=== PATIENT | female | born 1960 | race Two or more races ===

== ENCOUNTER 2020-05-30 14:16 | Emergency (ER) | payer OTHER, SELFPAY ==
[2020-05-30 14:28] VITALS: BP 178/80; PULSE 107; RESP 18; TEMP 36.8; O2SAT 100; BMI 21.5
[2020-05-30 16:16] LABS: MANUAL DIFF FLAG NO
[2020-05-30 16:18] LABS: Basophils Percent Auto 0.3 % (0-2); Eosinophils Percent Auto 0.3 % (0-4); Hematocrit 49.8 % (37-47); Hemoglobin 16.5 g/dl (12.0-16.0); Imm Gran Abs Auto 0.02 X10*3/uL (0.00-0.03); Imm Gran Pct Auto 0.2 % (0.0-0.4); Lymphocytes Absolute Auto 2.1 X10*3/uL (1.2-4.9); Lymphocytes Percent Auto 21.8 % (20-40); Mean Corpuscular HGB Conc 33.1 g/dl (31.0-35.0); Mean Corpuscular Hemoglobin 31.1 pg (27.0-33.0); Mean Corpuscular Volume 93.8 fL (80-98); Mean Platelet Volume 10.1 fL (9.4-12.3); Monocytes Absolute Auto 0.9 X10*3/uL (0.1-1.2); Monocytes Percent Auto 9.1 % (2-11); Neutrophils Absolute Auto 6.5 X10*3/uL (2.0-8.3); Neutrophils Percent Auto 68.3 % (45-73); Platelet Count 326 X10*3/uL (160-400); Red Blood Count 5.31 X10*6/uL (4.20-5.50); Red Cell Distribution Width 11.9 % (11.0-16.0); White Blood Count 9.5 X10*3/uL (4.8-10.8)
--- NOTE | 2020-05-30 16:28 | ED_ITS ---
HPI - Abdominal Pain General Chief Complaint: Abdominal Pain Stated Complaint: abd pain Time Seen by Provider: 05/30/20 16:25 Source: patient Mode of arrival: ambulatory History of Present Illness HPI narrative: 60-year-old female with a past medical history of hypertension, constipation presenting to ED complaining of acute on chronic abdominal pain x months. Admits decreased p.o. intake due to pain. Admits was recently at [facility], had workup/CT scan that were unremarkable, has been taking GoLYTELY and Tylenol without relief. States symptoms are the same/unchanged from chronic. Denies fever, chills, nausea/vomiting or diarrhea, dysuria/hematuria, recent travel, suspicious food intake MD elicited complaint: abdominal pain Related Data Home Medications Medication Instructions Recorded Confirmed acetaminophen 325 mg tablet 0 mg PO 05/30/20 amlodipine 5 mg tablet 5 mg PO DAILY 05/30/20 cholecalciferol (vitamin D3) 25 25 mcg PO DAILY 05/30/20 mcg (1,000 unit) capsule ergocalciferol (vitamin D2) 1,250 1,250 mcg PO QWEEK 05/30/20 mcg (50,000 unit) capsule polyethylene glycol 3350 17 g PO 05/30/20 gram/dose oral powder Previous Rx's Medication Instructions Recorded alum-mag hydroxide-simeth [Maalox 5 ml PO 5XD PRN #3000 ml 05/30/20 Advanced] lidocaine HCl [Lidocaine Viscous] 1 appl MUCOUS MEMBRANE BID PRN 05/30/20 #100 ml omeprazole 20 mg PO DAILY #14 cap 05/30/20 Allergies Allergy/AdvReac Type Severity Reaction Status Date / Time No Known Allergies Allergy Verified 05/30/20 13:17 Review of Systems Review of Systems Constitutional: No Weight loss, No Fever, No Chills Cardiovascular: No Chest Pain, No SOB Respiratory: No Cough, No Sputum, No Wheezing, No Dyspnea Gastrointestinal: No Nausea, No Vomiting, No Diarrhea, No Constipation, + Abdominal pain, No Hematochezia, No Melena Genitourinary: No irregular bleeding, No Dysuria, No Urinary Frequency, No Hematuria Musculoskeletal: No joint pain, No Myalgias, No Joint Swelling Skin: No Skin Lesions, No rash Yes all other systems are reviewed and are negative Physical Exam Vital Signs: Vital Signs: Last Vital Signs Temp 98.3 F 05/30/20 19:19 Pulse 78 05/30/20 19:28 Resp 16 05/30/20 19:19 BP 149/83 H 05/30/20 19:28 Pulse Ox 99 05/30/20 19:19 Body Mass Index 21.5 Const: General: cooperative and healthy appearing Orientation/consciousnes s: patient oriented x3 Limitations: no limitations HENMT: Head: Yes normal to inspection Ears: hearing grossly normal bilaterally General nose exam: Normal external nose present Face and sinus: Yes normal facial exam Eyes: General: appearance normal, both eyes and all related structures EOM: EOMs intact bilaterally Neck: Neck: Yes normal visual inspection Resp: Effort & Inspection: normal respiratory effort Cardio: Rate: regular rate Heart sounds: S1 normal heart sound present and S2 normal heart sound present Peripheral pulses: Peripheral pulses 2+ t hroughout GI: Inspection: Yes normal to inspection Palpation (GI): Soft to palpation, not firm, nontender, no guarding, not rigid and Pulsatile mass present (Pulsatile mass appreciated in her abdomen) : General: Yes no CVA tenderness Back/Spine/Pelvis: Back: no CVA tenderness Skin: Rashes: no rashes Wounds: no wounds Neuro: General: patient oriented x3 Gait exam (Neuro): Normal gait present Extrem: General: Yes normal to inspection Course Course Course Narrative: * No leukocytosis, labs otherwise unremarkable * 2037--UA negative. I spoke to patient's daughter on the phone, she admits patient has been dealing with this chronic abdominal pain for a long time. Is scheduled for endoscopy/colonoscopy in a few weeks. Daughter also confirmed patient has been worked up for pulsatile mass. * Follow-up with PCP/GI discussed with patient and with daughter, they verbalized understanding in feel safe for patient to be discharged home MDM - Abdominal Pain MDM Narrative Medical decision making narrative: 60-year-old female with a past medical history of hypertension, constipation presenting to ED complaining of acute on chronic abdominal pain x months. On exam initially tachycardic, NAD/nontoxic appearing, abdomen soft, nontender, pulsatile mass appreciated. On bedside ultrasound aorta measured and 3.4 cm. Reviwed records from [facility] from recent ED visit on 05/03/2020, per records patient has had workup done from pulsatile lesion her abdomen. Abdominal pain is noted to be chronic which she has been worked up for as well. Labs reviewed from this ED visit and were WNL, as well as CT which only showed constipation, no aneurysm or venous thrombosis, no other acute findings. Also per notes patient has scheduled endoscopy and colonoscopy in 2 weeks Likely acute on chronic pain. Low concern for appendicitis/divertic ulitis/dissection/aneurysm/cholecystitis or lithiasis Plan: Labs, UA, symptomatic therapy/reassess Lab Data Result diagrams: 05/30/20 15:56 05/30/20 15:56 Labs: Lab Results 05/30/20 05/30/20 05/30/20 Range/Units 15:56 15:56 15:56 WBC 9.5 (4.8-10.8) X10*3/uL RBC 5.31 (4.20-5.50) X10*6/uL Hgb 16.5 H (12.0-16.0) g/dl Hct 49.8 H (37-47) % MCV 93.8 (80-98) fL MCH 31.1 (27.0-33.0) pg MCHC 33.1 (31.0-35.0) g/dl RDW 11.9 (11.0-16.0) % Plt Count 326 (160-400) X10*3/uL MPV 10.1 (9.4-12.3) fL Immature Gran % (Auto) 0.2 (0.0-0.4) % Neut % (Auto) 68.3 (45-73) % Lymph % (Auto) 21.8 (20-40) % Creek % (Auto) 9.1 (2-11) % Eos % (Auto) 0.3 (0-4) % Baso % (Auto) 0.3 (0-2) % Lymph # (Auto) 2.1 (1.2-4.9) X10*3/uL Creek # (Auto) 0.9 (0.1-1.2) X10*3/uL Eos # (Auto) 0.0 (0.0-0.4) X10*3/uL Baso # (Auto) 0.0 (0.0-0.2) X10*3/uL Abs Immat Gran (auto) 0.02 (0.00-0.03) X10*3/uL Absolute Neuts (auto) 6.5 (2.0-8.3) X10*3/uL Absolute Nucleated RBC 0.000 (0.0-0.012) X10*3/uL Nucleated RBC % (auto) 0.0 (0.0-0.2) /100WBC Hold Blue Top SEE NOTE Sodium 142 (135-145) mmol/L Potassium 4.4 (3.3-5.1) mmol/l Chloride 104 (96-108) mmol/L Carbon Dioxide 28 (22-29) mmol/L Anion Gap 14 (12-20) BUN 17 H (9-16) mg/dL Creatinine 0.78 (0.5-1.4) mg/dL Estim Creat Clear Calc 57.1 Estimated GFR > 60 Random Glucose 92 (60-115) mg/dL Calcium 9.7 (8.4-10.2) mg/dL Magnesium 2.2 (1.6-2.6) mg/dL Total Bilirubin 0.4 (0.0-1.0) mg/dL Direct Bilirubin 0.2 (0.0-0.5) mg/dL AST 24 (5-31) U/L ALT 29 (0-31) U/L Alkaline Phosphatase 96 (39-117) U/L Total Protein 7.5 (6.5-8.0) g/dL Albumin 4.7 (3.5-5.0) g/dL Lipase 20 (8-78) U/L Urine Color Urine Appearance Urine pH (5.0-8.0) Ur Specific [place] (1.005-1.025) Urine Protein (NEG-TRACE) MG/DL Urine Glucose (UA) (NEG) MG/DL Urine Ketones (NEG) MG/DL Urine Blood (NEG) Urine Nitrite (NEG) Ur Leukocyte Esterase (NEG) 05/30/20 Range/Units 19:59 WBC (4.8-10.8) X10*3/uL RBC (4.20-5.50) X10*6/uL Hgb (12.0-16.0) g/dl Hct (37-47) % MCV (80-98) fL MCH (27.0-33.0) pg MCHC (31.0-35.0) g/dl RDW (11.0-16.0) % Plt Count (160-400) X10*3/uL MPV (9.4-12.3) fL Immature Gran % (Auto) (0.0-0.4) % Neut % (Auto) (45-73) % Lymph % (Auto) (20-40) % Creek % (Auto) (2-11) % Eos % (Auto) (0-4) % Baso % (Auto) (0-2) % Lymph # (Auto) (1.2-4.9) X10*3/uL Creek # (Auto) (0.1-1.2) X10*3/uL Eos # (Auto) (0.0-0.4) X10*3/uL Baso # (Auto) (0.0-0.2) X10*3/uL Abs Immat Gran (auto) (0.00-0.03) X10*3/uL Absolute Neuts (auto) (2.0-8.3) X10*3/uL Absolute Nucleated RBC (0.0-0.012) X10*3/uL Nucleated RBC % (auto) (0.0-0.2) /100WBC Hold Blue Top Sodium (135-145) mmol/L Potassium (3.3-5.1) mmol/l Chloride (96-108) mmol/L Carbon Dioxide (22-29) mmol/L Anion Gap (12-20) BUN (9-16) mg/dL Creatinine (0.5-1.4) mg/dL Estim Creat Clear Calc Estimated GFR Random Glucose (60-115) mg/dL Calcium (8.4-10.2) mg/dL Magnesium (1.6-2.6) mg/dL Total Bilirubin (0.0-1.0) mg/dL Direct Bilirubin (0.0-0.5) mg/dL AST (5-31) U/L ALT (0-31) U/L Alkaline Phosphatase (39-117) U/L Total Protein (6.5-8.0) g/dL Albumin (3.5-5.0) g/dL Lipase (8-78) U/L Urine Color YELLOW Urine Appearance CLEAR Urine pH 7.0 (5.0-8.0) Ur Specific [place] 1.020 (1.005-1.025) Urine Protein NEG (NEG-TRACE) MG/DL Urine Glucose (UA) NEG (NEG) MG/DL Urine Ketones NEG (NEG) MG/DL Urine Blood NEG (NEG) Urine Nitrite NEG (NEG) Ur Leukocyte Esterase NEG (NEG) Discharge Plan Discharge Clinical Impression: Abdominal pain Qualifiers: Abdominal location: generalized Qualified Code(s): R10.84 - Generalized abdominal pain Patient Disposition: Home, Self-Care Instructions: Abdominal Pain (ED) Additional Instructions: Your blood work and urine were unremarkable today in the ED You need to follow-up with your GI doctor for your endoscopy/colonoscopy that is already scheduled Maalox, omeprazole, and lidocaine will help with her symptoms, take as needed and as prescribed If her symptoms persist or worsen, become unbearable, you are unable to eat or drink, or have fever return to the ED Prescriptions: New omeprazole 20 mg capsule,delayed release(DR/EC) 20 mg PO DAILY Qty: 14 RF: 0 alum-mag hydroxide-simeth [Maalox Advanced] 200-200-20 mg/5 mL suspension 5 ml PO 5XD PRN (Reason: dyspepsia) Qty: 3000 RF: 0 Lidocaine Viscous 2 % solution 1 appl mucous membrane BID PRN (Reason: pain) Qty: 100 RF: 0 No Action cholecalciferol (vitamin D3) 25 mcg (1,000 unit) capsule 25 mcg PO DAILY RF: 0 acetaminophen 325 mg tablet 0 mg PO RF: 0 polyethylene glycol 3350 17 gram/dose powder PO RF: 0 amlodipine 5 mg tablet 5 mg PO DAILY RF: 0 ergocalciferol (vitamin D2) 1,250 mcg (50,000 unit) capsule 1,250 mcg PO QWEEK RF: 0 Referrals: Ida Morton MD [Physician] - 1 week Print Language: [place] [facility] Past Medical History Attestation statement: The following information was validated with the patient. Medical History (Updated 05/30/20 @ 20:40 by JOYCE Alexis) Constipation HTN (hypertension) Social History Social History Alcohol intake: never Smoking Status: Never smoker Use of substances other than those prescribed or required for medical reasons: No Advance Directives: No Advance Directives Information Provided: Yes
[2020-05-30 16:45] LABS: Alanine Aminotransferase 29 U/L (0-31); Albumin Level 4.7 g/dL (3.5-5.0); Alkaline Phosphatase 96 U/L (39-117); Anion Gap 14 (12-20); Aspartate Amino Transferase 24 U/L (5-31); Bilirubin Total 0.4 mg/dL (0.0-1.0); Blood Urea Nitrogen 17 mg/dL (9-16); Calcium 9.7 mg/dL (8.4-10.2); Carbon Dioxide 28 mmol/L (22-29); Chloride 104 mmol/L (96-108); Creatinine Clr Calc Pharmacy 57.1; Estimated Glomerular Filt Rate > 60; Glucose Random 92 mg/dL (60-115); Potassium 4.4 mmol/l (3.3-5.1); Sodium 142 mmol/L (135-145); Total Protein 7.5 g/dL (6.5-8.0)
--- NOTE | 2020-05-30 16:52 | ECG_ITS ---
Test Reason : EPIGASTRIC PAIN Blood Pressure : / mmHG Vent. Rate : 075 BPM Atrial Rate : 075 BPM P-R Int : 126 ms QRS Dur : 076 ms QT Int : 376 ms P-R-T Axes : 072 047 058 degrees QTc Int : 419 ms Normal sinus rhythm Possible Left atrial enlargement Left ventricular hypertrophy Abnormal ECG No previous ECGs available Referred By: Jeannine Whittington Electronically Signed By:Derian Marie
[2020-05-30 18:31] LABS: Bilirubin Direct 0.2 mg/dL (0.0-0.5); Magnesium 2.2 mg/dL (1.6-2.6)
[2020-05-30 19:07] LABS: Lipase 20 U/L (8-78)
[2020-05-30 19:19] VITALS: BP 136/74; PULSE 78; PULSE 94; RESP 16; TEMP 36.8; O2SAT 99
--- NOTE | 2020-05-30 19:24 | PC.NURSE ---
pt refused iv and fluids multiple times today. explained purpose of iv placement, pt continued to refuse. c/o ongoing epigastric pain, squeezing .
[2020-05-30 19:25] VITALS: BP 152/79; PULSE 83
[2020-05-30] MEDS: Famotidine 20 MG TABLET PO (19:27)
[2020-05-30] MEDS: Lidocaine HCl Viscous 2 % 15 ML SOLUTION MUCOUS MEM (19:27)
[2020-05-30] MEDS: Magnesium Hydrox/Alum Hydrox 30 ML ORAL.SUSP PO (19:27)
[2020-05-30 19:28] VITALS: BP 149/83; PULSE 78
[2020-05-30 20:24] LABS: Glucose Urine UA NEG (NEG); Leukocyte Esterase Urine NEG (NEG); Nitrite Urine NEG (NEG); Urine Blood NEG (NEG); Urine Ketones NEG (NEG); Urine Protein NEG (NEG-TRACE)
[2020-05-30 20:28] LABS: Appearance Urine CLEAR; Color Urine YELLOW
== END 2020-05-30 20:58 | disposition home or self-care (01) ==
PROVIDERS: Emergency Provider Internal Medicine
DX: R10.84 Generalized abdominal pain (principal); Z79.899 Other long term (current) drug therapy
CPT/HCPCS: 36415; 80053; 80076; 81003; 82248; 83690; 83735; 85025; 93005; 96360; 99284

== ENCOUNTER 2020-07-29 12:20 | Emergency (ER) | payer MEDICAID, SELFPAY ==
--- NOTE | ~2020-07-29 | XR_ITS ---
EXAMINATION: XR CHEST CLINICAL INFORMATION: Chest pain COMPARISON: None TECHNIQUE: Frontal view of the chest was obtained. FINDINGS: Right basilar atelectasis. There is no focal consolidation. There is no pneumothorax. The trachea is midline. The cardiomediastinal silhouette is not enlarged. Aorta demonstrates atherosclerotic calcifications. Degenerative changes of the thoracic spine. Soft tissues are unremarkable. XR/XR chest 1V IMPRESSION: Right basilar atelectasis.
[2020-07-29 12:41] VITALS: BP 137/82; PULSE 93; RESP 18; TEMP 36.5; O2SAT 100
--- NOTE | 2020-07-29 13:35 | ED.GENADULT ---
HPI - General Adult General Chief complaint: General Medical Stated complaint: covid+ Time Seen by Provider: 07/29/20 12:53 Source: patient and lean leader Mode of arrival: ambulatory Limitations: language barrier History of Present Illness HPI narrative: 60-year-old female with a past medical history of hypertension, constipation presenting to ED complaining of acute on chronic abdominal pain x months -years. Admits decreased p.o. intake due to pain. Admits was recently at [facility], had workup/CT scan that were unremarkable, has been Tylenol without relief. Now followed by GI at [facility] at [facility]. On prilosec 20mg daily, elavil 10mg daily, miralax. States symptoms are the same/unchanged from chronic. Denies fever, chills, nausea/vomiting or diarrhea, dysuria/hematuria, recent travel, suspicious food intake. Also reportedly had endoscopy and colonoscopy approximately 1 month ago which were reportedly normal at [facility]. Seen at [facility] last week for same with no new changes. Patient is COVID positive. Tested positive 1 week ago. Related Data Home Medications Medication Instructions Recorded Confirmed acetaminophen 325 mg tablet 0 mg PO 05/30/20 amlodipine 5 mg tablet 5 mg PO DAILY 05/30/20 cholecalciferol (vitamin D3) 25 25 mcg PO DAILY 05/30/20 mcg (1,000 unit) capsule ergocalciferol (vitamin D2) 1,250 1,250 mcg PO QWEEK 05/30/20 mcg (50,000 unit) capsule polyethylene glycol 3350 17 g PO 05/30/20 gram/dose oral powder Previous Rx's Medication Instructions Recorded alum-mag hydroxide-simeth [Maalox 5 ml PO 5XD PRN #3000 ml 05/30/20 Advanced] lidocaine HCl [Lidocaine Viscous] 1 appl MUCOUS MEMBRANE BID PRN 05/30/20 #100 ml omeprazole 20 mg PO DAILY #14 cap 05/30/20 dicyclomine 20 mg PO TID #20 cap 07/29/20 polyethylene glycol 3350 [Miralax] 17 g PO DAILY #119 g 07/29/20 Allergies Allergy/AdvReac Type Severity Reaction Status Date / Time No Known Allergies Allergy Verified 05/30/20 13:17 Review of Systems Review of Systems: Yes all other systems are reviewed and are negative Constitutional: Constitutional: Reports no additional constitutional complaints, Denies body ache(s), Denies chills, Denies fever(s), Denies headache(s) and Denies weakness Eyes: Eyes: Reports no additional eye complaints and Denies change in vision ENT: Reports system reviewed and no additional complaints, except as documented, Denies dizziness, Denies headache(s), Denies nasal congestion, Denies nasal discharge and Denies neck pain Cardiovascular: Cardiovascular: Reports no additional cardiovascular complaints, Denies chest pain, Denies leg edema and Denies dyspnea Respiratory: Respiratory: Reports no additional respiratory complaints, Denies cough and Denies dyspnea Gastrointestinal: Gastrointestinal: Reports no additional gastrointestinal complaints, Reports abdominal pain, Denies diarrhea, Denies nausea and Denies vomiting Genitourinary: Genitourinary: Reports no additional female genitourinary complaints and Denies urinary incontinence Musculoskeletal: Musculoskeletal: Reports no additional musculoskeletal complaints, Denies back pain, Denies arthralgias, Denies joint swelling, Denies neck pain, Denies numbness and Denies tingling Integumentary/Breasts: Skin/Breast: Reports system reviewed and no additional complaints, except as docu and Denies rash Neurologic: Reports system reviewed and no additional complaints, except as documented, Denies Abnormal speech present, Denies dizziness, Denies headache(s), Denies numbness, Denies tingling and Denies weakness PMFSH Past Medical History Attestation statement: The following information was validated with the patient. Source: old records reviewed and nursing notes reviewed Medical History Constipation HTN (hypertension) Social History Social History Alcohol intake: never Smoking Status: Never smoker Smoked in Last 30 Days: No Use of substances other than those prescribed or required for medical reasons: No Advance Directives: No Advance Directives Information Provided: No Physical Exam Vital Signs: Vital Signs: Last Vital Signs Temp 97.8 F 07/29/20 16:00 Pulse 83 07/29/20 16:00 Resp 17 07/29/20 16:00 BP 147/80 H 07/29/20 16:00 Pulse Ox 98 07/29/20 16:00 Body Mass Index 20.0 Const: General: cooperative, healthy appearing, comfortable and no acute distress Orientation/consciousness: patient oriented x3 Limitations: no limitations HENMT: Head: Yes normal to inspection Ears: hearing grossly normal bilaterally General nose exam: Normal external nose present Face and sinus: Yes normal facial exam Mouth: Normal oral and palatal mucosa present Throat: Yes posterior oropharynx normal Eyes: General: appearance normal, both eyes and all related structures Pupils: Equal, round and reactive pupils present Neck: Neck: Yes normal visual inspection Chest: Chest palpation & inspection: normal inspection of the chest Resp: Effort & Inspection: normal respiratory effort Auscultation: clear to auscultation bilaterally Cardio: Rate: regular rate Rhythm: regular rhythm Peripheral pulses: Peripheral pulses 2+ throughout GI: Inspection: Yes normal to inspection Palpation (GI): Soft to palpation and Tenderness to palpation present (GI) (Mild diffuse. No rebound or guarding) Auscultation: normal bowel sounds Back/Spine/Pelvis: Thoracic/Lumbar Spine: thoracic and lumbar spine normal to inspection Skin: General skin exam: no rashes or lesions noted Neuro: General: patient oriented x3, no focal motor deficits and normal sensation to monofilament Cranial nerves: Yes Equal, round and reactive pupils present Cognition (Neuro): normal cognition Speech: No Abnormal speech present Gait exam (Neuro): Normal gait present Motor exam (neuro): 5/5 motor strength present throughout Extrem: General: Yes normal to inspection, Yes no pedal edema and Yes no calf tenderness Course Course Course Narrative: 60-year-old female here with acute on chronic abdominal pain times several days. Has been seen at [facility] and [facility] several times. Diagnosed with constipation and has been taking [id number] laxatives with continued symptoms of pain in addition to prilosec daily and elavil daily. She tells me she last moved her bowels this morning it was normal. No nausea or vomiting or fevers or chills. Feels similar to her previous abdominal pain and is not worsened but persistent. Will check labs, UA. Give patient GI cocktail anti spasmodic and reassess. 1540-Spoke to son. Tells me they know about her chronic abdominal pain which is worrying them but they brought patient in today d/t reports of chest pain and SOB since last night. Add on CXR, EKG, troponin. 1800-EKG shows no new changes. Chest x-ray shows some atelectasis but no focal consolidation or opacity. Troponin is negative. Patient has some reproducible chest discomfort with coughing and taking deep breath. She has no obvious tachypnea or shortness of breath and is speaking full sentences with a normal oxygen saturation. She has slight improvement in her abdominal pain on discharge but does continue to report some mild generalized discomfort. Patient tells me she has been taking all her medications as prescribed. She is very anxious on exam, having difficulty remembering discharge plan and seems confused with which medications she is supposed to be taking and when. I called and spoke to family who she lives with and they tell me the patient will take her medications for 1-2 days and then when it doesnt work she stops taking it. They tell me that they looked at the patient's medication bottles and they are full. They do live with the patient and I encouraged them to help her with her medications and to recommend that she give the medications more than 1-2 days to work. I also recommended that they speak to her agricultural education teacher and let them know what is going on as they may need to adjust the dosage of her medications for re-evaluate her and to further testing. I offered visiting nurse services the patient if she needs help with her medicines but she declined this. I also offered further placement in a short-term rehab and the patient declined this. Reviewed worrisome signs and symptoms with both the family and the patient with the engraver letter. Comfortable discharge home. Medical Decision Making MDM Narrative Medical decision making narrative: Less likely ACS with symptoms greater than 12 hours, unremarkable EKG from previous, negative troponin and atypical symptoms Less likely PE with no clinical signs or symptoms of DVT, no tachycardia, no hypoxia, no tachypnea. Less likely pneumonia with unremarkable chest x-ray and no clinical signs or symptoms of pneumonia Less likely cholecystitis vs stones with no focal RUQ pain and normal LFTs, Less likely SBO with no vomiting, normal bowel movements and normal bowel sounds. Less likely renal colic, pyelonephritis or UTI with negative UA. Medical Records Medical records reviewed: Yes I reviewed the patient's medical records. Lab Data Lab results reviewed: Yes I reviewed the patient's lab results. Result diagrams: 07/29/20 14:43 07/29/20 14:43 Labs: Lab Results 07/29/20 07/29/20 07/29/20 Range/Units 14:43 14:43 14:43 WBC 6.2 (4.8-10.8) X10*3/uL RBC 5.30 (4.20-5.50) X10*6/uL Hgb 15.8 (12.0-16.0) g/dl Hct 48.5 H (37-47) % MCV 91.5 (80-98) fL MCH 29.8 (27.0-33.0) pg MCHC 32.6 (31.0-35.0) g/dl RDW 11.5 (11.0-16.0) % Plt Count 457 H D (160-400) X10*3/uL MPV 9.3 L (9.4-12.3) fL Immature Gran % (Auto) 0.3 (0.0-0.4) % Neut % (Auto) 65.9 (45-73) % Lymph % (Auto) 23.7 (20-40) % [place] % (Auto) 9.2 (2-11) % Eos % (Auto) 0.6 (0-4) % Baso % (Auto) 0.3 (0-2) % Lymph # (Auto) 1.5 (1.2-4.9) X10*3/uL [place] # (Auto) 0.6 (0.1-1.2) X10*3/uL Eos # (Auto) 0.0 (0.0-0.4) X10*3/uL Baso # (Auto) 0.0 (0.0-0.2) X10*3/uL Abs Immat Gran (auto) 0.02 (0.00-0.03) X10*3/uL Absolute Neuts (auto) 4.1 (2.0-8.3) X10*3/uL Absolute Nucleated RBC 0.000 (0.0-0.012) X10*3/uL Nucleated RBC % (auto) 0.0 (0.0-0.2) /100WBC Sodium 139 (135-145) mmol/L Potassium 5.2 H (3.3-5.1) mmol/L Chloride 103 (96-108) mmol/L Carbon Dioxide 29 (22-29) mmol/L Anion Gap 12 (12-20) BUN 11 (9-16) mg/dL Creatinine 0.74 (0.5-1.4) mg/dL Estim Creat Clear Calc 60.2 Estimated GFR > 60 Random Glucose 111 (60-115) mg/dL Calcium 10.2 (8.4-10.2) mg/dL Total Bilirubin 0.7 (0.0-1.0) mg/dL Direct Bilirubin 0.2 (0.0-0.5) mg/dL AST 18 (5-31) U/L ALT 20 (0-31) U/L Alkaline Phosphatase 108 (39-117) U/L Troponin I High Sens (<3.5-17.0) ng/L Total Protein 7.2 (6.5-8.0) g/dL Albumin 4.2 (3.5-5.0) g/dL Urine Color YELLOW Urine Appearance HAZY Urine pH 6.5 (5.0-8.0) Ur Specific [place] <= 1.005 (1.005-1.025) Urine Protein NEG (NEG-TRACE) MG/DL Urine Glucose (UA) NEG (NEG) MG/DL Urine Ketones NEG (NEG) MG/DL Urine Blood NEG (NEG) Urine Nitrite NEG (NEG) Ur Leukocyte Esterase NEG (NEG) 07/29/20 Range/Units 16:14 WBC (4.8-10.8) X10*3/uL RBC (4.20-5.50) X10*6/uL Hgb (12.0-16.0) g/dl Hct (37-47) % MCV (80-98) fL MCH (27.0-33.0) pg MCHC (31.0-35.0) g/dl RDW (11.0-16.0) % Plt Count (160-400) X10*3/uL MPV (9.4-12.3) fL Immature Gran % (Auto) (0.0-0.4) % Neut % (Auto) (45-73) % Lymph % (Auto) (20-40) % [place] % (Auto) (2-11) % Eos % (Auto) (0-4) % Baso % (Auto) (0-2) % Lymph # (Auto) (1.2-4.9) X10*3/uL [place] # (Auto) (0.1-1.2) X10*3/uL Eos # (Auto) (0.0-0.4) X10*3/uL Baso # (Auto) (0.0-0.2) X10*3/uL Abs Immat Gran (auto) (0.00-0.03) X10*3/uL Absolute Neuts (auto) (2.0-8.3) X10*3/uL Absolute Nucleated RBC (0.0-0.012) X10*3/uL Nucleated RBC % (auto) (0.0-0.2) /100WBC Sodium (135-145) mmol/L Potassium (3.3-5.1) mmol/L Chloride (96-108) mmol/L Carbon Dioxide (22-29) mmol/L Anion Gap (12-20) BUN (9-16) mg/dL Creatinine (0.5-1.4) mg/dL Estim Creat Clear Calc Estimated GFR Random Glucose (60-115) mg/dL Calcium (8.4-10.2) mg/dL Total Bilirubin (0.0-1.0) mg/dL Direct Bilirubin (0.0-0.5) mg/dL AST (5-31) U/L ALT (0-31) U/L Alkaline Phosphatase (39-117) U/L Troponin I High Sens < 3.5 (<3.5-17.0) ng/L Total Protein (6.5-8.0) g/dL Albumin (3.5-5.0) g/dL Urine Color Urine Appearance Urine pH (5.0-8.0) Ur Specific [place] (1.005-1.025) Urine Protein (NEG-TRACE) MG/DL Urine Glucose (UA) (NEG) MG/DL Urine Ketones (NEG) MG/DL Urine Blood (NEG) Urine Nitrite (NEG) Ur Leukocyte Esterase (NEG) Imaging Data Chest x-ray: Attestation: I personally reviewed and interpreted this imaging study as follows: Radiologist's impression: EXAMINATION: XR CHEST CLINICAL INFORMATION: Chest pain COMPARISON: None TECHNIQUE: Frontal view of the chest was obtained. FINDINGS: Right basilar atelectasis. There is no focal consolidation. There is no pneumothorax. The trachea is midline. The cardiomediastinal silhouette is not enlarged. Aorta demonstrates atherosclerotic calcifications. Degenerative changes of the thoracic spine. Soft tissues are unremarkable. XR/XR chest 1V IMPRESSION: Right basilar atelectasis. ECG Data Attestation: I personally reviewed and interpreted this ECG as follows: Interpretation: Normal sinus rhythm with a sinus arrhythmia. There are T-wave inversions in leads V1 through V3 which appear unchanged when compared to EKG from 05/30/2020. Normal WI, normal QRS, normal QT. Discharge Plan Discharge Clinical Impression: Acute chest wall pain Abdominal pain Qualifiers: Abdominal location: generalized Qualified Code(s): R10.84 - Generalized abdominal pain Patient Disposition: Home, Self-Care Instructions: Chest Pain (ED), Abdominal Pain (ED) Additional Instructions: Her labs, x-ray and EKG as well as urine tests all look unremarkable today. Consider buying a pulse oximeter and monitoring her oxygen saturation at home and returning for oxygen saturation <90% Return for worsening shortness of breath, severe chest pain, low oxygen saturations Continue quarantine at home Her abdominal pain is chronic and she has been seen by a agricultural education teacher. She should follow up with them as they may decide to do additional testing and/or manage her medically. Continue medications as prescribed. You need to re-start your prilosec and elavil which are prescribed by your GI doctor. You need to give these medications more then 2-3 days to work, they take time and the dose may need to be adjusted by your GI. Call them Friday to discuss. You can buy a one a day over the counter vitamin Prescriptions: New dicyclomine 10 mg capsule 20 mg PO TID Qty: 20 RF: 0 polyethylene glycol 3350 [Miralax] 17 gram/dose powder 17 g PO DAILY Qty: 119 RF: 0 No Action omeprazole 20 mg capsule,delayed release(DR/EC) 20 mg PO DAILY Qty: 14 RF: 0 alum-mag hydroxide-simeth [Maalox Advanced] 200-200-20 mg/5 mL suspension 5 ml PO 5XD PRN (Reason: dyspepsia) Qty: 3000 RF: 0 Lidocaine Viscous 2 % solution 1 appl mucous membrane BID PRN (Reason: pain) Qty: 100 RF: 0 cholecalciferol (vitamin D3) 25 mcg (1,000 unit) capsule 25 mcg PO DAILY RF: 0 acetaminophen 325 mg tablet 0 mg PO RF: 0 polyethylene glycol 3350 17 gram/dose powder PO RF: 0 amlodipine 5 mg tablet 5 mg PO DAILY RF: 0 ergocalciferol (vitamin D2) 1,250 mcg (50,000 unit) capsule 1,250 mcg PO QWEEK RF: 0 Referrals: Physician,Unknown [Primary Care Provider] - 2 days Print Language: Croatian
[2020-07-29] MEDS: Dicyclomine HCl 10 MG CAPSULE PO (14:01)
[2020-07-29] MEDS: Magnesium Hydrox/Alum Hydrox 30 ML ORAL.SUSP PO (14:01)
[2020-07-29] MEDS: Lidocaine HCl Viscous 2 % 15 ML SOLUTION MUCOUS MEM (14:01)
[2020-07-29 14:46] VITALS: BP 140/75; PULSE 82; RESP 18; TEMP 36.8; O2SAT 99
[2020-07-29 14:51] LABS: MANUAL DIFF FLAG NO
[2020-07-29 14:55] LABS: Basophils Percent Auto 0.3 % (0-2); Eosinophils Percent Auto 0.6 % (0-4); Glucose Urine UA NEG (NEG); Hematocrit 48.5 % (37-47); Hemoglobin 15.8 g/dl (12.0-16.0); Imm Gran Abs Auto 0.02 X10*3/uL (0.00-0.03); Imm Gran Pct Auto 0.3 % (0.0-0.4); Leukocyte Esterase Urine NEG (NEG); Lymphocytes Absolute Auto 1.5 X10*3/uL (1.2-4.9); Lymphocytes Percent Auto 23.7 % (20-40); Mean Corpuscular HGB Conc 32.6 g/dl (31.0-35.0); Mean Corpuscular Hemoglobin 29.8 pg (27.0-33.0); Mean Corpuscular Volume 91.5 fL (80-98); Mean Platelet Volume 9.3 fL (9.4-12.3); Monocytes Absolute Auto 0.6 X10*3/uL (0.1-1.2); Monocytes Percent Auto 9.2 % (2-11); Neutrophils Absolute Auto 4.1 X10*3/uL (2.0-8.3); Neutrophils Percent Auto 65.9 % (45-73); Nitrite Urine NEG (NEG); PH 6.5 (5.0-8.0); Platelet Count 457 X10*3/uL (160-400); Red Cell Distribution Width 11.5 % (11.0-16.0); Specific Gravity - Urine <= 1.005 (1.005-1.025); Urine Blood NEG (NEG); Urine Ketones NEG (NEG); Urine Protein NEG (NEG-TRACE); White Blood Count 6.2 X10*3/uL (4.8-10.8)
[2020-07-29 14:58] LABS: Appearance Urine HAZY; Color Urine YELLOW
[2020-07-29 15:17] LABS: Alanine Aminotransferase 20 U/L (0-31); Albumin Level 4.2 g/dL (3.5-5.0); Alkaline Phosphatase 108 U/L (39-117); Anion Gap 12 (12-20); Aspartate Amino Transferase 18 U/L (5-31); Bilirubin Direct 0.2 mg/dL (0.0-0.5); Bilirubin Total 0.7 mg/dL (0.0-1.0); Blood Urea Nitrogen 11 mg/dL (9-16); Calcium 10.2 mg/dL (8.4-10.2); Carbon Dioxide 29 mmol/L (22-29); Chloride 103 mmol/L (96-108); Creatinine Clr Calc Pharmacy 60.2; Estimated Glomerular Filt Rate > 60; Glucose Random 111 mg/dL (60-115); Potassium 5.2 mmol/L (3.3-5.1); Sodium 139 mmol/L (135-145); Total Protein 7.2 g/dL (6.5-8.0)
--- NOTE | 2020-07-29 15:27 | ECG_ITS ---
Test Reason : CHEST PAIN Blood Pressure : / mmHG Vent. Rate : 081 BPM Atrial Rate : 081 BPM P-R Int : 128 ms QRS Dur : 084 ms QT Int : 362 ms P-R-T Axes : -10 023 015 degrees QTc Int : 420 ms Normal sinus rhythm with sinus arrhythmia Left ventricular hypertrophy with repolarization abnormality Abnormal ECG When compared with ECG of 30-MAY-2020 17:43, No significant change was found Referred By: Lyric Mckeon Electronically Signed By:DAVID QUICK MD
[2020-07-29 16:00] VITALS: BP 147/80; PULSE 83; RESP 17; TEMP 36.6; O2SAT 98
--- NOTE | 2020-07-29 16:39 | PC.NURSE ---
ekg performed, vss, pt awaiting results to tests, will continue to monitor.
[2020-07-29 17:35] LABS: Troponin-I High Sensitivity < 3.5 ng/L (<3.5-17.0)
== END 2020-07-29 18:58 | disposition home or self-care (01) ==
PROVIDERS: Nurse Practitioner Family; Emergency Provider Emergency Medicine Emergency Medical Services
DX: R07.89 Other chest pain (principal); R10.84 Generalized abdominal pain; I10 Essential (primary) hypertension
CPT/HCPCS: 36415; 71045; 80048; 80076; 81003; 84484; 85025; 93005; 99283; 99284

== ENCOUNTER → 2021-05-03 10:01 | Outpatient (BNVA) | payer MEDICAID, SELFPAY | PROVIDERS: PCP Family Medicine; Referring Provider Family Medicine; Visit Provider Internal Medicine | DX: I10 Essential (primary) hypertension (principal); R07.89 Other chest pain | CPT/HCPCS: 93005; 99202 ==

== ENCOUNTER 2021-05-14 11:17 | Outpatient (REF) | payer MEDICAID, SELFPAY ==
[2021-05-14 13:24] LABS: Hematocrit 47.9 % (37.0-47.0); Hemoglobin 15.2 g/dl (12.0-16.0); Mean Corpuscular HGB Conc 31.7 g/dl (31.0-35.0); Mean Corpuscular Hemoglobin 29.3 pg (27.0-33.0); Mean Corpuscular Volume 92.5 fL (80.0-98.0); Mean Platelet Volume 10.2 fL (9.4-12.3); Platelet Count 261 X10*3/uL (160-400); Red Blood Count 5.18 X10*6/uL (4.20-5.50); Red Cell Distribution Width 12.4 % (11.0-16.0); White Blood Count 5.3 X10*3/uL (4.8-10.8)
[2021-05-14 13:53] LABS: Alanine Aminotransferase 14 U/L (0-31); Albumin Level 4.5 g/dL (3.5-5.0); Alkaline Phosphatase 103 U/L (39-117); Anion Gap 14 (12-20); Aspartate Amino Transferase 15 U/L (5-31); Bilirubin Total 0.6 mg/dL (0.0-1.0); Blood Urea Nitrogen 15 mg/dL (9-16); Calcium 10.4 mg/dL (8.4-10.2); Carbon Dioxide 24 mmol/L (22-29); Chloride 106 mmol/L (96-108); Estimated Glomerular Filt Rate > 60; Glucose Random 101 mg/dL (60-115); Potassium 4.8 mmol/L (3.3-5.1); Sodium 139 mmol/L (135-145); Total Protein 7.2 g/dL (6.5-8.0)
[2021-05-14 14:09] LABS: H Pylori Breath Test Negative (Negative)
[2021-05-14 14:13] LABS: TSH reflex Free T4 0.88 uIU/mL (0.32-4.0)
== END 2021-05-14 11:18 | disposition home or self-care (01) ==
LOC: HO.LAB 11:17
PROVIDERS: PCP Family Medicine; Referring Provider Family Medicine; Visit Provider Nurse Practitioner Family
DX: K21.9 Gastro-esophageal reflux disease without esophagitis (principal); K58.1 Irritable bowel syndrome with constipation; Z79.899 Other long term (current) drug therapy
CPT/HCPCS: 36415; 80053; 83013; 84443; 85027; 99202

== ENCOUNTER 2021-12-06 14:33 | Outpatient (REF) | payer MEDICAID, SELFPAY ==
[2021-12-06 15:49] LABS: Blood Urea Nitrogen 14 mg/dL (9-16); Estimated Glomerular Filt Rate > 60
== END 2021-12-06 14:34 | disposition home or self-care (01) ==
LOC: HO.LAB 14:33
PROVIDERS: Visit Provider Nurse Practitioner Family
DX: R10.84 Generalized abdominal pain (principal)
CPT/HCPCS: 36415; 82565; 84520

== ENCOUNTER 2021-12-10 15:03 | Outpatient (REF) | payer MEDICAID, SELFPAY ==
--- NOTE | ~2021-12-10 | CT_ITS ---
EXAMINATION: CT ABDOMEN AND PELVIS WITH CONTRAST CLINICAL INFORMATION: Abdominal pain COMPARISON: None TECHNIQUE: Multidetector volumetric images were obtained from the superior aspect of the liver through the pubic symphysis following administration 85 mL of Omnipaque 350 intravenous contrast. Sagittal and coronal reformatted images were obtained on the technologist's workstation. Oral contrast: No This CT examination was performed using dose optimization techniques as appropriate, variously including the following: *Automated exposure control *Adjustment of mA and/or kV according to patient size (this includes techniques or standardized protocols for targeted exams where dose is matched to indication/reason for exam; i.e. extremities or head) *Use of iterative reconstruction technique DLP: 259 mGy-cm FINDINGS: LUNG BASES: The visualized lung bases are unremarkable. LIVER, GALLBLADDER, AND BILIARY TREE: The liver is normal in size, shape, and attenuation. No focal hepatic lesion or biliary ductal dilatation is present. The gallbladder is unremarkable with no evidence of radiopaque gallstones, gallbladder wall thickening, or obvious pericholecystic inflammatory changes. PANCREAS: Unremarkable. SPLEEN: Unremarkable. ADRENAL GLANDS: Unremarkable. KIDNEYS AND URETERS: The kidneys are normal in size, shape, and attenuation. No hydronephrosis, hydroureter, or calculi seen. No perinephric stranding. BLADDER: Unremarkable. GASTROINTESTINAL TRACT: The small and large bowel are unremarkable. The appendix is unremarkable. ABDOMINAL WALL: No significant hernia is appreciated. LYMPH NODES: Normal. VASCULAR: Unremarkable. PELVIC VISCERA: Unremarkable. OSSEOUS STRUCTURES: Unremarkable. CT/CT abdomen pelvis w con IMPRESSION: Unremarkable exam. Fleischner guidelines were followed.
[2021-12-10] MEDS: iohexoL 350 MG/ML 100 ML INFUS..BTL IV (17:45)
== END 2021-12-10 15:04 | disposition home or self-care (01) ==
LOC: HO.CT 15:03
PROVIDERS: PCP Family Medicine; Visit Provider Nurse Practitioner Family
DX: R10.9 Unspecified abdominal pain (principal)
CPT/HCPCS: 74177; Q9967

== ENCOUNTER 2021-12-25 14:27 | Outpatient (REF) | payer MEDICAID, SELFPAY ==
[2021-12-25 15:25] LABS: Hematocrit 47.9 % (37.0-47.0); Hemoglobin 15.4 g/dl (12.0-16.0); Mean Corpuscular HGB Conc 32.2 g/dl (31.0-35.0); Mean Corpuscular Hemoglobin 29.8 pg (27.0-33.0); Mean Corpuscular Volume 92.6 fL (80.0-98.0); Mean Platelet Volume 10.5 fL (9.4-12.3); Platelet Count 255 X10*3/uL (160-400); Red Blood Count 5.17 X10*6/uL (4.20-5.50); Red Cell Distribution Width 12.7 % (11.0-16.0); White Blood Count 6.6 X10*3/uL (4.8-10.8)
[2021-12-25 16:06] LABS: Alanine Aminotransferase 16 U/L (0-31); Albumin Level 4.7 g/dL (3.5-5.0); Alkaline Phosphatase 108 U/L (39-117); Anion Gap 13 (12-20); Aspartate Amino Transferase 17 U/L (5-31); Bilirubin Total 0.6 mg/dL (0.0-1.0); Blood Urea Nitrogen 14 mg/dL (9-16); Calcium 10.1 mg/dL (8.4-10.2); Carbon Dioxide 28 mmol/L (22-29); Chloride 104 mmol/L (96-108); Estimated Glomerular Filt Rate > 60; Glucose Random 89 mg/dL (60-115); Lipase 20 U/L (8-78); Potassium 3.9 mmol/L (3.3-5.1); Sodium 141 mmol/L (135-145); Total Protein 7.4 g/dL (6.5-8.0)
[2021-12-25 16:27] LABS: TSH reflex Free T4 0.98 uIU/mL (0.32-4.0)
[2021-12-31 16:37] LABS: Vitamin D 25-OH, D2 10 ng/mL; Vitamin D 25-OH, D3 23 ng/mL; Vitamin D 25-OH, Total 33 ng/mL (30-100)
== END 2021-12-25 14:28 | disposition home or self-care (01) ==
LOC: HO.LAB 14:27
PROVIDERS: Visit Provider Nurse Practitioner Family
DX: E55.9 Vitamin D deficiency, unspecified (principal); R10.9 Unspecified abdominal pain; R10.84 Generalized abdominal pain; Z12.11 Encounter for screening for malignant neoplasm of colon
CPT/HCPCS: 36415; 80053; 82306; 83690; 84443; 85027; 99212

== ENCOUNTER 2023-02-26 15:29 | Outpatient (REF) | payer MEDICAID, SELFPAY ==
[2023-02-26 17:36] LABS: MANUAL DIFF FLAG NO
[2023-02-26 17:54] LABS: Basophils Absolute Auto 0.1 X10*3/uL (0.0-0.2); Basophils Percent Auto 1.2 % (0-2); Eosinophils Percent Auto 0.7 % (0-4); Hematocrit 43.9 % (37.0-47.0); Hemoglobin 13.9 g/dl (12.0-16.0); Imm Gran Abs Auto 0.01 X10*3/uL (0.00-0.03); Imm Gran Pct Auto 0.2 % (0.0-0.4); Lymphocytes Percent Auto 48.4 % (20-40); Mean Corpuscular HGB Conc 31.7 g/dl (31.0-35.0); Mean Corpuscular Hemoglobin 29.3 pg (27.0-33.0); Mean Corpuscular Volume 92.4 fL (80.0-98.0); Mean Platelet Volume 10.1 fL (9.4-12.3); Monocytes Absolute Auto 0.3 X10*3/uL (0.1-1.2); Monocytes Percent Auto 7.7 % (2-11); Neutrophils Absolute Auto 1.7 x10*3/uL (2.0-8.3); Neutrophils Percent Auto 41.8 % (45-73); Platelet Count 352 X10*3/uL (160-400); Red Blood Count 4.75 X10*6/uL (4.20-5.50); Red Cell Distribution Width 14.3 % (11.0-16.0); White Blood Count 4.2 X10*3/uL (4.8-10.8)
[2023-02-26 18:32] LABS: Alanine Aminotransferase 10 U/L (0-31); Alkaline Phosphatase 79 U/L (39-117); Anion Gap 11 (12-20); Aspartate Amino Transferase 18 U/L (5-31); Bilirubin Total 0.5 mg/dL (0.0-1.0); Blood Urea Nitrogen 11 mg/dL (9-16); Calcium 9.8 mg/dL (8.4-10.2); Carbon Dioxide 27 mmol/L (22-29); Chloride 105 mmol/L (96-108); Cholesterol 210 mg/dL (<200); Estimated Glomerular Filt Rate > 60; Glucose Random 78 mg/dL (60-115); HDL Cholesterol 59 mg/dL (>40); Iron 86 mcg/dL (30-160); LDL Cholesterol Calculated 133 mg/dL (<100); Percent Iron Saturation 37 % (15-50); Potassium 4.1 mmol/L (3.3-5.1); Sodium 139 mmol/L (135-145); Total Iron Binding Capacity 231 mcg/dL (228-428); Total Protein 6.7 g/dL (6.5-8.0); Triglycerides 93 mg/dL (<150); Unsaturated Iron Binding 145 ug/dL
[2023-02-26 18:49] LABS: Ferritin 174 ng/mL (10-250); TSH reflex Free T4 1.54 uIU/mL (0.32-4.0)
== END 2023-02-26 15:30 | disposition home or self-care (01) ==
LOC: HO.CHCLDS 15:29
PROVIDERS: Visit Provider Family Medicine
DX: Z13.220 Encounter for screening for lipoid disorders (principal); R53.83 Other fatigue
CPT/HCPCS: 36415; 80053; 80061; 82728; 83540; 84443; 85025

== ENCOUNTER 2023-03-17 15:04 | Outpatient (REF) | payer MEDICAID, SELFPAY ==
[2023-03-17 17:53] LABS: Lipase 26 U/L (8-78)
[2023-03-17 18:12] LABS: TSH reflex Free T4 1.39 uIU/mL (0.32-4.0)
[2023-03-20 13:38] LABS: Transglutaminase Ab IgG <1.0 U/mL; Transglutaminase IgA <1.0 U/mL
[2023-03-22 16:23] LABS: Vitamin D 25-OH, D2 11 ng/mL; Vitamin D 25-OH, D3 15 ng/mL; Vitamin D 25-OH, Total 26 ng/mL (30-100)
== END 2023-03-17 15:05 | disposition home or self-care (01) ==
LOC: HO.LAB 15:04
PROVIDERS: PCP Family Medicine; Visit Provider Nurse Practitioner Family
DX: K59.04 Chronic idiopathic constipation (principal); K21.9 Gastro-esophageal reflux disease without esophagitis; R09.89 Other specified symptoms and signs involving the circulatory and respiratory systems; R63.0 Anorexia; R10.84 Generalized abdominal pain; R14.0 Abdominal distension (gaseous); E55.9 Vitamin D deficiency, unspecified
CPT/HCPCS: 36415; 82306; 83690; 84443; 86364; 99212

== ENCOUNTER 2023-03-17 15:04 | Outpatient (AMB) | payer MEDICAID, SELFPAY ==
[2023-03-17 15:18] VITALS: BP 164/83; PULSE 55; BMI 14.6
--- NOTE | 2023-03-17 15:18 | MHC.OFFVIS ---
Intake Vital Signs 03/17/23 15:18 Height 5 ft Weight 74 lb 15.315 oz BMI 14.6 BP 164/83 H Blood Pressure Location Lt brachial Position Sitting Pulse 55 Intake Visit Reasons: 2 month follow up Intake Note: Madhavi presents in office today abd pain. CC: Patient c/o weakness, poor appetite, chest pain, constipation, chocking with foods, shortness of breath. She also c/o body aches, headaches, and nausea. Patient also states getting pain when she drinks or eat anything. 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 Patient reports that her pain is throughout the whole abdomen and mostly in the right upper and left upper quadrant. Patient is requesting something for pain. Discussed with her that if I gave her opioids which is not appropriate she will be more constipated. I will give her instead Pepcid and she can take it twice a day. Abdominal bloating Postprandial abdominal bloating most likely related to the food that she eats as well as gas trapping due to her being constipated. Patient will need to move her bowels better I will send her script for senna and she can continue taking fiber. Anorexia I will start her on low-dose mirtazapine at bedtime. Patient is not eating much. Discussed with patient and her family that she must follow-up with her primary care provider about seeking psychiatric help. Patient does reports to be anxious and some what depressed. Patient has had no appetite that is documented in 2019 Chronic idiopathic constipation Chronic constipation discussed with patient the importance of taking medications to help her move her bowels. I will send her to check pancreatic elastase, lipase, thyroid studies, vitamin-D, CBC and CMP. I will see patient in 2 months, sooner on as needed basis. Patient is agreeable to this plan and verbalizes understanding of instructions. She was given the opportunity to ask questions and all questions answered. ? Thank you for allowing me to participate in her care Plan Orders Orders Pancreatic Elastase-1 12/25/21 R10.9 Lipase 12/25/21 R10.9 TSH reflex Free T4 12/25/21 Z12.11 Vitamin D 25-OH (D2 and D3) 12/25/21 E55.9 Comprehensive Met. Panel 12/25/21 R10.84 Complete Blood Count no Diff 12/25/21 R10.84 Medications New mirtazapine Tomelo todas las noches antes de acostarse 7.5 mg PO BEDTIME 90 tabs 2RF K31.84 famotidine (Pepcid) 20 mg PO BID 60 tabs 3RF K29.70 Refilled sennosides (Natural Senna Laxative) 8.6 mg PO BEDTIME 30 tabs 3RF constipation K59.00 TODAY'S VISIT Patient is here today for follow-up. Family requested to be seen as patient continues to lose weight. Patient stopped taking all of her medications. Reports that she is not eating. Patient reports pain every time that someone is trying to upper food. Patient however is drinking few coffee cups a day. Patient reports that no matter what she eats she is having epigastric discomfort. Patient reports occasional nausea. Denies any dyspepsia, dysphagia or odynophagia. Patient reports that she is not moving her bowels daily, however family believes that she is also not eating and that could be the reason. Patient is not drinking much of any other fluids except for coffee. Long discussion with family about seeing a psychiatrist. Patient should probably see iron bender, however psychiatry should be considered first. COUNTS INCLUDE 234 BEDS AT THE [facility] Medical History Constipation HTN (hypertension) Surgical History History of esophagogastroduodenoscopy (EGD) Hx of colonoscopy Family History Father Heart disease Mother Heart disease Social History Alcohol intake: never Patient Tobacco Use Status: Never used Tobacco Review of Systems Const Denies weight gain and Reports weight loss ENT Reports no additional complaints, Denies dysphagia and Denies odynophagia Card Reports no additional complaints Resp Reports no additional complaints GI Reports abdominal pain (Epigastric), Denies belching, Denies melena, Denies bloating, Denies change in bowel habits, Reports constipation, Reports GI cramping, Denies dysphagia, Denies excessive flatus, Denies dyspepsia, Reports heartburn, Denies diarrhea, Denies loose stools, Denies nausea, Denies odynophagia and Denies vomiting Reports no additional complaints Musc Reports no additional complaints Neuro Reports no additional complaints Psych Reports no additional complaints Endo Reports no additional complaints Physical Exam Vital Signs: Last Vital Signs Pulse 55 03/17/23 15:18 BP 164/83 H 03/17/23 15:18 BMI result Body Mass Index 14.6 Const General: healthy appearing, no acute distress, well developed and anxious Nutritional Appearance: underweight Orientation/consciousness: patient oriented x3 HEENT Head: Yes normal to inspection, Yes normocephalic and Yes atraumatic Face and sinus: Yes normal facial exam Mouth: Normal oral and palatal mucosa present Throat: Yes posterior oropharynx normal, Yes tonsils normal and Yes uvula midline Eyes General: appearance normal, both eyes and all related structures Neck Neck: Yes normal visual inspection, Yes full ROM and Yes trachea midline Thyroid: Thyroid normal Resp Effort & Inspection: normal respiratory effort, able to speak in complete sentences, no tracheal deviation and symmetric chest movement Auscultation: clear to auscultation bilaterally Cardio Rate: regular rate Heart sounds: S1 normal heart sound present and S2 normal heart sound present GI Inspection: Yes normal to inspection and No distended Palpation (GI): Soft to palpation, not firm, nontender and No hepatosplenomegaly present Auscultation: normal bowel sounds General: Yes no CVA tenderness Back/Spine/Pelvis Back: no CVA tenderness Skin General skin exam: elasticity normal, turgor normal and dry skin Neuro General: patient oriented x3 Psych Appearance: grossly normal Mental Status: mental status grossly normal Affect: Anxious affect present Assessment & Plan Assessment & Plan (1) Anorexia: Code(s): R63.0 - Anorexia (2) Abdominal pain: Code(s): R10.9 - Unspecified abdominal pain Qualifiers: Abdominal location: generalized Qualified Code(s): R10.84 - Generalized abdominal pain (3) Abdominal bloating: Code(s): R14.0 - Abdominal distension (gaseous) (4) Chronic idiopathic constipation: Code(s): K59.04 - Chronic idiopathic constipation Plan Long discussion with family about contacting her PCP or seeing psychiatrist. Patient was encouraged to eat and increasing p.o. intake. Patient can start taking sucralfate at bedtime. She can continue taking pantoprazole in the morning half an hour before breakfast. Discussed with the patient the importance of avoiding coffee altogether or at least decreasing to very small amount. Will check for pancreatic insufficiency. Will check lipase, H pylori, transglutaminase. Will refer patient to see iron bender to help with choosing high-calorie food. Patient was encouraged to drink Ensure and protein shakes couple times a day. I will see patient in 5 weeks, sooner on as needed basis. Patient is agreeable to this plan and verbalizes understanding of instructions. She was given the opportunity to ask questions and all questions answered. Patient's family, her and her children (son and daughter) participated during that appointment and are agreeable to plan of care Thank you for allowing me to participate in her care Orders: Orders Pancreatic Elastase-1 03/17/23 R10.9 - Unspecified abdominal pain H pylori Ag Stool 03/17/23 K21.9 - Gastro-esophageal reflux disease without esophagitis Transglutaminase IgA 03/17/23 R10.9 - Unspecified abdominal pain Lipase 03/17/23 R10.9 - Unspecified abdominal pain Transglutaminase Ab IgG 03/17/23 R10.9 - Unspecified abdominal pain Vitamin D 25-OH (D2 and D3) 03/17/23 E55.9 - Vitamin D deficiency, unspecified TSH reflex Free T4 03/17/23 K59.00 - Constipation, unspecified Referrals [facility] Referral R63.0 - Anorexia Medications: New sucralfate 1 g PO BID 60 tabs 2RF R19.7 - Diarrhea, unspecified linaclotide (Linzess) 72 mcg PO DAILY 30 caps 2RF Coding Level of Care Code Est Pt Level 4 (51885) Diagnoses Anorexia R63.0 Generalized abdominal pain R10.84 Abdominal location: generalized Abdominal bloating R14.0 Chronic idiopathic constipation K59.04 Time Spent (min) 40 Comment 25 minute spent with patient and additional 15 minutes spent reviewing her records.
== END 2023-03-17 16:20 | disposition home or self-care (01) ==
PROVIDERS: Visit Provider Nurse Practitioner Family
DX: R63.0 Anorexia (principal); R10.84 Generalized abdominal pain; R14.0 Abdominal distension (gaseous); K59.04 Chronic idiopathic constipation
CPT/HCPCS: 99214

== ENCOUNTER 2023-03-30 15:58 | Outpatient (REF) | payer MEDICAID, SELFPAY | END 2023-03-30 15:59 | disposition home or self-care (01) | LOC: HO.LNP 15:58 | PROVIDERS: Visit Provider Nurse Practitioner Family | DX: R10.9 Unspecified abdominal pain (principal) | CPT/HCPCS: 82656; 87338 ==

== ENCOUNTER 2023-05-15 16:27 | Outpatient (REF) | payer MEDICAID, SELFPAY ==
[2023-05-15 18:32] LABS: Alanine Aminotransferase 175 U/L (0-31); Albumin Level 4.2 g/dL (3.5-5.0); Alkaline Phosphatase 99 U/L (39-117); Anion Gap 10 (12-20); Aspartate Amino Transferase 104 U/L (5-31); Bilirubin Total 0.4 mg/dL (0.0-1.0); Blood Urea Nitrogen 15 mg/dL (9-16); C Reactive Protein < 0.04 mg/dL (< or = 0.50); Calcium 9.8 mg/dL (8.4-10.2); Carbon Dioxide 29 mmol/L (22-29); Chloride 103 mmol/L (96-108); Estimated Glomerular Filt Rate > 60; Glucose Random 112 mg/dL (60-115); Lactate Dehydrogenase 177 U/L (122-220); Sodium 138 mmol/L (135-145)
[2023-05-15 18:42] LABS: TSH reflex Free T4 1.11 uIU/mL (0.32-4.0)
[2023-05-16 08:24] LABS: HIV AB/AG Nonreactive (Nonreactive); HIV Num 1 0.05 S/CO (0.00-0.99)
== END 2023-05-15 16:28 | disposition home or self-care (01) ==
LOC: HO.CHCLDS 16:27
PROVIDERS: Visit Provider Family Medicine
DX: Z11.4 Encounter for screening for human immunodeficiency virus [HIV] (principal); R62.7 Adult failure to thrive
CPT/HCPCS: 36415; 80053; 83615; 84134; 84443; 86140; 87389